=== PATIENT | female | born 1965 | race Caucasian/White ===

== ENCOUNTER 2022-09-25 10:19 | Inpatient (IN) | payer MEDICAID, SELFPAY ==
--- NOTE | ~2022-09-25 | CT_ITS ---
EXAMINATION: CT CHEST WITH CONTRAST CLINICAL INFORMATION: Abnormal chest x-ray COMPARISON: None TECHNIQUE: Multidetector volumetric CT imaging of the chest was obtained after the administration of 65 mL of Omnipaque 350 intravenous contrast without immediate adverse reactions. Axial MIP volume rendering provided. Sagittal and coronal reformatted images were obtained. This CT examination was performed using dose optimization techniques as appropriate, variously including the following: *Automated exposure control *Adjustment of mA and/or kV according to patient size (this includes techniques or standardized protocols for targeted exams where dose is matched to indication/reason for exam; i.e. extremities or head) *Use of iterative reconstruction technique DLP: 166 mGy-cm FINDINGS: The thoracic inlet is felt to be within normal limits. The axillary regions are unremarkable. Partially imaged upper abdominal structures demonstrate a left adrenal lesion. 0.6 x 1.3 cm. The left hilum does not appear enlarged. Prominent right hilum. I suspect some adenopathy. Imaging the lung russo. Right lung; Reticular nodular change in the right upper lung. This is occurring both peripherally and anteriorly at the level of the right hilum. This may well account for some of the density chest film. There is underlying confluence here and therefore an underlying lesion cannot be excluded versus dense consolidation on image 30. There is also some reticular nodular change at the right base most consistent with infiltrate. Left lung; No infiltrate or effusion. Review of the bone windows does not demonstrate evidence for bony lesion. Degenerative changes are noted. CT/CT chest w IV con IMPRESSION: Findings are as described above. Exam is most remarkable for reticular nodular infiltrate in the right upper lung and right lower lung consistent with areas of infiltrate but in addition more confluent opacity in the right midlung may well represent more dense infiltrate but underlying lesion of course could not be excluded. Probable right hilar adenopathy which may well be reactive. Correlation recommended clinically. I would in the least recommend repeat CT in 6 weeks after treatment for infectious/inflammatory process to evaluate for clearing. There is a left adrenal lesion. Recommend adrenal protocol CT to further evaluate
--- NOTE | ~2022-09-25 | XR_ITS ---
EXAMINATION: XR KNEE, RIGHT CLINICAL INFORMATION: Pain. Fall. COMPARISON: None TECHNIQUE: AP, lateral, tunnel, and sunrise views of the right knee. FINDINGS: Bones are osteopenic. No acute fracture or malalignment. There is a joint effusion. Soft tissues are swollen. Joint spaces are well-preserved. XR/XR knee RT 4V IMPRESSION: 1. No acute fracture or malalignment. 2. Joint effusion. 3. Osteopenia.
--- NOTE | ~2022-09-25 | XR_ITS ---
EXAMINATION: XR CHEST, 2 VIEWS CLINICAL INFORMATION: Pain COMPARISON: None. TECHNIQUE: PA and lateral views of the chest were obtained. FINDINGS: As seen on the lateral view, there is a focal 2.5 cm opacity overlying the lungs anteriorly which may correlate with increased opacity overlying the right hilar region. No other airspace opacities are identified. Lungs otherwise clear. Cardiac and meniscal contours are normal. No pneumothorax or pleural effusion. Mild degenerative disc disease in the thoracic spine. Closed thickening clips are present in the right upper quadrant. XR/XR chest 2V IMPRESSION: Focal 2.5 cm opacity overlying the right hilar region which may correspond to a pulmonary nodule or focal consolidation. Recommend further assessment with a CT of the chest with contrast. Otherwise no acute findings
--- NOTE | ~2022-09-25 | XR_ITS ---
EXAMINATION: XR ANKLE, RIGHT CLINICAL INFORMATION: Pain/fall. COMPARISON: None TECHNIQUE: AP, lateral, and mortise views of the right ankle. FINDINGS: Small marginal osteophytes are present in the talocrural joint. No joint effusion. No erosions. Bones are osteopenic. Mild soft tissue swelling at the ankle. Enthesopathic spurring is present at the Achilles tendon insertion on the calcaneus. XR/XR ankle RT min 3V IMPRESSION: 1. No acute fracture or malalignment. 2. Mild talocrural osteoarthritis.
[2022-09-25 10:36] VITALS: BP 140/76; PULSE 110; O2SAT 96
--- NOTE | 2022-09-25 10:37 | ECG_ITS ---
Test Reason : CHEST PAIN Blood Pressure : / mmHG Vent. Rate : 089 BPM Atrial Rate : 089 BPM P-R Int : 144 ms QRS Dur : 080 ms QT Int : 374 ms P-R-T Axes : 073 068 060 degrees QTc Int : 455 ms Normal sinus rhythm Normal ECG No previous ECGs available Referred By: Generic ED Physician Electronically Signed By:NUPUR ECHAVARRIA MD
[2022-09-25 11:15] LABS: MANUAL DIFF FLAG NO
[2022-09-25 11:20] LABS: Basophils Absolute Auto 0.1 X10*3/uL (0.0-0.2); Basophils Percent Auto 0.4 % (0-2); Eosinophils Absolute Auto 0.1 X10*3/uL (0.0-0.4); Hematocrit 38.3 % (37.0-47.0); Hemoglobin 12.6 g/dl (12.0-16.0); Imm Gran Abs Auto 0.04 X10*3/uL (0.00-0.03); Imm Gran Pct Auto 0.3 % (0.0-0.4); Lymphocytes Absolute Auto 2.6 X10*3/uL (1.2-4.9); Lymphocytes Percent Auto 21.7 % (20-40); Mean Corpuscular HGB Conc 32.9 g/dl (31.0-35.0); Mean Corpuscular Volume 91.2 fL (80.0-98.0); Mean Platelet Volume 8.8 fL (9.4-12.3); Monocytes Absolute Auto 0.7 X10*3/uL (0.1-1.2); Monocytes Percent Auto 5.8 % (2-11); Neutrophils Absolute Auto 8.5 x10*3/uL (2.0-8.3); Neutrophils Percent Auto 70.8 % (45-73); Platelet Count 315 X10*3/uL (160-400); Red Cell Distribution Width 11.7 % (11.0-16.0)
[2022-09-25 11:21] VITALS: BP 126/81; PULSE 89; RESP 18; TEMP 37.2; O2SAT 97; BMI 21.1
--- NOTE | 2022-09-25 11:25 | ED.GENADULT ---
HPI - General Adult General Chief complaint: Chest Pain <Marquise Montgomery - Last Filed: 09/25/22 11:30> Stated complaint: Cough, fever, chest pain, SOB per EMS <Marquise Montgomery - Last Filed: 09/25/22 11:30> Time Seen by Provider: 09/25/22 20:22 <Marquise Montgomery - Last Filed: 09/25/22 11:30> Source: patient <Constance López NP - Last Filed: 09/25/22 23:51> Mode of arrival: ambulatory <Constance López NP - Last Filed: 09/25/22 23:51> Limitations: language barrier <Constance López NP - Last Filed: 09/25/22 23:51> History of Present Illness HPI narrative: 57-year-old female presents with multiple complaints. States have chest pain, shortness of breath, productive cough, intermittent fevers and chills, headaches, panic, dizziness, and right leg pain and swelling after a fall 1 week ago. <Constance López NP - Last Filed: 09/25/22 23:51> Onset (ago): week(s) (1) <Constance López NP - Last Filed: 09/25/22 23:51> Severity: moderate <Constance López NP - Last Filed: 09/25/22 23:51> Severity scale (1-10): 5 <Constance López NP - Last Filed: 09/25/22 23:51> Quality: aching <Constance López NP - Last Filed: 09/25/22 23:51> Pain Consistency: constant <Constance López NP - Last Filed: 09/25/22 23:51> Associated symptoms: chest pain, cough, fever/chills, headaches, malaise and shortness of breath <Constance López NP - Last Filed: 09/25/22 23:51> Treatments prior to arrival: aspirin <Constance López NP - Last Filed: 09/25/22 23:51> Related Data Allergies/adverse reactions: Allergies Allergy/AdvReac Type Severity Reaction Status Date / Time No Known Allergies Allergy Verified 09/25/22 11:31 <Marquise Montgomery - Last Filed: 09/25/22 11:30> Review of Systems Review of Systems: Constitutional: Positive Fever, positive Chills ENT/Mouth: No Ear Pain, pop Hoarseness, No sore throat Eyes: No Eye Pain, No Swelling, No Redness, No Foreign Body Cardiovascular: Pause Chest Pain, positive SOB Respiratory: Pauses Cough, No Dyspnea Gastrointestinal: No Nausea, No Vomiting, No Diarrhea, No abdominal Pain Genitourinary: No Dysuria, No Hematuria Musculoskeletal: positive knee pain, No Myalgias, No Joint Swelling Skin: No Skin lacerations, No rash Neuro: No Weakness, No Numbness, No Paresthesias, No Loss of Consciousness, No Dizziness, positive Headache Psych: Positive Anxiety/Panic, No Depression <Constance López NP - Last Filed: 09/25/22 23:51> Yes all other systems are reviewed and are negative <Constance López NP - Last Filed: 09/25/22 23:51> [facility] Past Medical History Attestation statement: The following information was validated with the patient. <Constance López NP - Last Filed: 09/25/22 23:51> Source: old records reviewed <Constance López NP - Last Filed: 09/25/22 23:51> Social History Social History: Social History Advance Directives: No Advance Directives Information Provided: No <Marquise Montgomery - Last Filed: 09/25/22 11:30> Physical Exam ED Vital Signs: Vital Signs - 24 hr 09/25/22 11:21 09/25/22 14:53 09/25/22 20:06 Temperature 99 F 97.7 F Pulse Rate 89 82 105 H Respiratory Rate 18 18 22 H Blood Pressure 126/81 126/72 148/82 H Pulse Oximetry 97 97 98 Oxygen Delivery Method Room Air Room Air BMI result Body Mass Index 21.1 <Marquise Montgomery - Last Filed: 09/25/22 11:30> Vital Signs - 24 hr 09/25/22 11:21 09/25/22 14:53 09/25/22 20:06 Temperature 99 F 97.7 F Pulse Rate 89 82 105 H Respiratory Rate 18 18 22 H Blood Pressure 126/81 126/72 148/82 H Pulse Oximetry 97 97 98 Oxygen Delivery Method Room Air Room Air BMI result Body Mass Index 21.1 <Constance López NP - Last Filed: 09/25/22 23:51> Appearance: Alert. Oriented X3. Moderate distress. Eyes: Pupils equal, round and reactive to light. ENT: Pharynx normal. Neck: Normal inspection. Neck supple. No cervical lymphadenopathy. CVS: Normal heart rate and rhythm. Pulses normal. Respiratory: No respiratory distress. Coarse lung sounds throughout, expiratory wheezing noted. Abdomen: Soft and nontender. Skin: Skin warm and dry. Normal skin color. Normal skin turgor. Extremities: No lower extremity edema. Gait well-balanced well coordinated. Right knee tender to palpation. Neuro: No motor deficit. No sensory deficit. Cranial nerves 2-12 intact. <Constance López NP - Last Filed: 09/25/22 23:51> Course Course Course Narrative: 57 year old female with no known history of coronary artery disease presents for evaluation of multiple complaints including chest pain, productive cough, leg pain. Patient reports that the chest pain started 3 days ago has been getting worse. Patient arrive EMS and received aspirin 324 en route. Reports history of asthma and panic attacks. Patient also reports that she fell 1/2 months ago and injured her right leg. <Marquise Montgomery - Last Filed: 09/25/22 11:30> 57 year old female with no known history of coronary artery disease presents for evaluation of multiple complaints including chest pain, productive cough, leg pain. Patient reports that the chest pain started 3 days ago has been getting worse. Patient arrive EMS and received aspirin 324 en route. Reports history of asthma and panic attacks. Patient also reports that she fell 1/2 months ago and injured her right leg. 20:30 Patient presents for evaluation for multiple concerns. Was in the waiting room for approximately 10 hours. Labs completed while she was in the worsening room, upon presentation to the emergency department, heart rate is 105, respiration rate 22, COVID influenza RSV are negative, white count 12.0, knee x-ray indicates effusion, chest ray x-ray indicates a focal 2.5 cm opacity overlying the right hilar region which may be a pulmonary nodule versus focal consolidation. Patient's sounds are coarse expiratory wheezing. Patient does have productive cough, sputum is opaque and thick. O2 sats 96-98% on room air. Will order Solu-Medrol albuterol, ceftriaxone, and CT scan as recommended. For joint effusion, will apply Cam wrap. 22:00 patient has even unlabored respirations. Lung sounds have improved after albuterol. Respiration rate 17. lactic acid 1.8. 23:40 CT scan indicates right-sided pneumonia. Patient's vital signs have not been repeated. Patient's pulse at bedside is 82, respiration rate 16, even unlabored. Plan of care is for admission. <Constance López NP - Last Filed: 09/25/22 23:51> Consultations Consultation #1: Ant <Constance López NP - Last Filed: 09/25/22 23:51> Time: 23:30 <Constance López NP - Last Filed: 09/25/22 23:51> Medications Administered Discontinued Medications Generic Name Dose Route Start Last Admin Trade Name Freq PRN Reason Stop Dose Admin Albuterol Sulfate 5 mg 09/25/22 20:36 09/25/22 20:51 Albuterol Sulfate (0.083%) 2.5 Mg/3 Ml Vial.Neb INHALE 09/25/22 20:37 5 mg ONCE ONE Administration Ceftriaxone Sodium 1 gm/ 50 mls @ 100 mls/hr 09/25/22 20:29 09/25/22 22:02 Sodium Chloride IV 09/25/22 20:58 Infused ONCE ONE Infusion Iohexol 100 ml 09/25/22 21:51 09/25/22 21:51 Iohexol 350 Mg/Ml 100 Ml Infus..Btl IV 09/25/22 21:52 65 ml ONCE ONE Administration Methylprednisolone Sodium Succinate 125 mg 09/25/22 20:36 09/25/22 21:21 Methylprednisolone Sod Succ 125 Mg/2 Ml Vial IVPUSH 09/25/22 20:37 125 mg ONCE ONE Administration <Marquise Montgomery - Last Filed: 09/25/22 11:30> Medications Administered Discontinued Medications Generic Name Dose Route Start Last Admin Trade Name Freq PRN Reason Stop Dose Admin Albuterol Sulfate 5 mg 09/25/22 20:36 09/25/22 20:51 Albuterol Sulfate (0.083%) 2.5 Mg/3 Ml Vial.Neb INHALE 09/25/22 20:37 5 mg ONCE ONE Administration Ceftriaxone Sodium 1 gm/ 50 mls @ 100 mls/hr 09/25/22 20:29 09/25/22 22:02 Sodium Chloride IV 09/25/22 20:58 Infused ONCE ONE Infusion Iohexol 100 ml 09/25/22 21:51 09/25/22 21:51 Iohexol 350 Mg/Ml 100 Ml Infus..Btl IV 09/25/22 21:52 65 ml ONCE ONE Administration Methylprednisolone Sodium Succinate 125 mg 09/25/22 20:36 09/25/22 21:21 Methylprednisolone Sod Succ 125 Mg/2 Ml Vial IVPUSH 09/25/22 20:37 125 mg ONCE ONE Administration <Constance López NP - Last Filed: 09/25/22 23:51> Medical Decision Making Differential Diagnosis Differential Diagnoses: The differential diagnosis associated with the presentation includes <Constance López NP - Last Filed: 09/25/22 23:51> Pneumonia, lung CA, URI, COVID, influenza, RSV, effusion, fracture, dislocation <Constance López NP - Last Filed: 09/25/22 23:51> Admission/Observation Consideration of admission/observation: Escalation of care including admission/observation considered <Constance López NP - Last Filed: 09/25/22 23:51> will admit if CT acute <Constance López NP - Last Filed: 09/25/22 23:51> Consult Healthcare Provider Management of the patient was discussed with: Hospitalist <Constance López NP - Last Filed: 09/25/22 23:51> Lab Data MDM Lab Attestation statement: I reviewed the patient's lab results. <Constance López NP - Last Filed: 09/25/22 23:51> Result Diagrams: 09/25/22 11:09 09/25/22 11:09 <Marquise Montgomery - Last Filed: 09/25/22 11:30> Labs: Lab Results 09/25/22 09/25/22 09/25/22 Range/Units 11:09 11:09 11:09 WBC 12.0 H (4.8-10.8) X10*3/uL RBC 4.20 (4.20-5.50) X10*6/uL Hgb 12.6 (12.0-16.0) g/dl Hct 38.3 (37.0-47.0) % MCV 91.2 (80.0-98.0) fL MCH 30.0 (27.0-33.0) pg MCHC 32.9 (31.0-35.0) g/dl RDW 11.7 (11.0-16.0) % Plt Count 315 (160-400) X10*3/uL MPV 8.8 L (9.4-12.3) fL Immature Gran % (Auto) 0.3 (0.0-0.4) % Neut % (Auto) 70.8 (45-73) % Lymph % (Auto) 21.7 (20-40) % [place] % (Auto) 5.8 (2-11) % Eos % (Auto) 1.0 (0-4) % Baso % (Auto) 0.4 (0-2) % Lymph # (Auto) 2.6 (1.2-4.9) X10*3/uL [place] # (Auto) 0.7 (0.1-1.2) X10*3/uL Eos # (Auto) 0.1 (0.0-0.4) X10*3/uL Baso # (Auto) 0.1 (0.0-0.2) X10*3/uL Abs Immat Gran (auto) 0.04 H (0.00-0.03) X10*3/uL Absolute Neuts (auto) 8.5 H (2.0-8.3) x10*3/uL Absolute Nucleated RBC 0.000 (0.0-0.012) X10*3/uL Nucleated RBC % (auto) 0.0 (0.0-0.2) /100WBC Sodium 141 (135-145) mmol/L Potassium 3.6 (3.3-5.1) mmol/L Chloride 109 H (96-108) mmol/L Carbon Dioxide 22 (22-29) mmol/L Anion Gap 14 (12-20) BUN 7 L (9-16) mg/dL Creatinine 0.50 (0.5-1.4) mg/dL Estim Creat Clear Calc 92.5 Estimated GFR > 60 Random Glucose 117 H (60-115) mg/dL Lactic Acid (0.5-2.0) mmol/L Calcium 9.0 (8.4-10.2) mg/dL Troponin I High Sens < 3.5 (<3.5-17.0) ng/L Influenza Type A (PCR) (Negative) Influenza Type B (PCR) (Negative) RSV RNA Qual (PCR) (Negative) SARS-CoV-2 RNA (RT-PCR) (Negative) 09/25/22 09/25/22 Range/Units 11:09 20:38 WBC (4.8-10.8) X10*3/uL RBC (4.20-5.50) X10*6/uL Hgb (12.0-16.0) g/dl Hct (37.0-47.0) % MCV (80.0-98.0) fL MCH (27.0-33.0) pg MCHC (31.0-35.0) g/dl RDW (11.0-16.0) % Plt Count (160-400) X10*3/uL MPV (9.4-12.3) fL Immature Gran % (Auto) (0.0-0.4) % Neut % (Auto) (45-73) % Lymph % (Auto) (20-40) % [place] % (Auto) (2-11) % Eos % (Auto) (0-4) % Baso % (Auto) (0-2) % Lymph # (Auto) (1.2-4.9) X10*3/uL [place] # (Auto) (0.1-1.2) X10*3/uL Eos # (Auto) (0.0-0.4) X10*3/uL Baso # (Auto) (0.0-0.2) X10*3/uL Abs Immat Gran (auto) (0.00-0.03) X10*3/uL Absolute Neuts (auto) (2.0-8.3) x10*3/uL Absolute Nucleated RBC (0.0-0.012) X10*3/uL Nucleated RBC % (auto) (0.0-0.2) /100WBC Sodium (135-145) mmol/L Potassium (3.3-5.1) mmol/L Chloride (96-108) mmol/L Carbon Dioxide (22-29) mmol/L Anion Gap (12-20) BUN (9-16) mg/dL Creatinine (0.5-1.4) mg/dL Estim Creat Clear Calc Estimated GFR Random Glucose (60-115) mg/dL Lactic Acid 1.8 (0.5-2.0) mmol/L Calcium (8.4-10.2) mg/dL Troponin I High Sens (<3.5-17.0) ng/L Influenza Type A (PCR) NEGATIVE (Negative) Influenza Type B (PCR) NEGATIVE (Negative) RSV RNA Qual (PCR) NEGATIVE (Negative) SARS-CoV-2 RNA (RT-PCR) NEGATIVE (Negative) <Marquise Montgomery - Last Filed: 09/25/22 11:30> Lab Results 09/25/22 09/25/22 09/25/22 Range/Units 11:09 11:09 11:09 WBC 12.0 H (4.8-10.8) X10*3/uL RBC 4.20 (4.20-5.50) X10*6/uL Hgb 12.6 (12.0-16.0) g/dl Hct 38.3 (37.0-47.0) % MCV 91.2 (80.0-98.0) fL MCH 30.0 (27.0-33.0) pg MCHC 32.9 (31.0-35.0) g/dl RDW 11.7 (11.0-16.0) % Plt Count 315 (160-400) X10*3/uL MPV 8.8 L (9.4-12.3) fL Immature Gran % (Auto) 0.3 (0.0-0.4) % Neut % (Auto) 70.8 (45-73) % Lymph % (Auto) 21.7 (20-40) % [place] % (Auto) 5.8 (2-11) % Eos % (Auto) 1.0 (0-4) % Baso % (Auto) 0.4 (0-2) % Lymph # (Auto) 2.6 (1.2-4.9) X10*3/uL [place] # (Auto) 0.7 (0.1-1.2) X10*3/uL Eos # (Auto) 0.1 (0.0-0.4) X10*3/uL Baso # (Auto) 0.1 (0.0-0.2) X10*3/uL Abs Immat Gran (auto) 0.04 H (0.00-0.03) X10*3/uL Absolute Neuts (auto) 8.5 H (2.0-8.3) x10*3/uL Absolute Nucleated RBC 0.000 (0.0-0.012) X10*3/uL Nucleated RBC % (auto) 0.0 (0.0-0.2) /100WBC Sodium 141 (135-145) mmol/L Potassium 3.6 (3.3-5.1) mmol/L Chloride 109 H (96-108) mmol/L Carbon Dioxide 22 (22-29) mmol/L Anion Gap 14 (12-20) BUN 7 L (9-16) mg/dL Creatinine 0.50 (0.5-1.4) mg/dL Estim Creat Clear Calc 92.5 Estimated GFR > 60 Random Glucose 117 H (60-115) mg/dL Lactic Acid (0.5-2.0) mmol/L Calcium 9.0 (8.4-10.2) mg/dL Troponin I High Sens < 3.5 (<3.5-17.0) ng/L Influenza Type A (PCR) (Negative) Influenza Type B (PCR) (Negative) RSV RNA Qual (PCR) (Negative) SARS-CoV-2 RNA (RT-PCR) (Negative) 09/25/22 09/25/22 Range/Units 11:09 20:38 WBC (4.8-10.8) X10*3/uL RBC (4.20-5.50) X10*6/uL Hgb (12.0-16.0) g/dl Hct (37.0-47.0) % MCV (80.0-98.0) fL MCH (27.0-33.0) pg MCHC (31.0-35.0) g/dl RDW (11.0-16.0) % Plt Count (160-400) X10*3/uL MPV (9.4-12.3) fL Immature Gran % (Auto) (0.0-0.4) % Neut % (Auto) (45-73) % Lymph % (Auto) (20-40) % [place] % (Auto) (2-11) % Eos % (Auto) (0-4) % Baso % (Auto) (0-2) % Lymph # (Auto) (1.2-4.9) X10*3/uL [place] # (Auto) (0.1-1.2) X10*3/uL Eos # (Auto) (0.0-0.4) X10*3/uL Baso # (Auto) (0.0-0.2) X10*3/uL Abs Immat Gran (auto) (0.00-0.03) X10*3/uL Absolute Neuts (auto) (2.0-8.3) x10*3/uL Absolute Nucleated RBC (0.0-0.012) X10*3/uL Nucleated RBC % (auto) (0.0-0.2) /100WBC Sodium (135-145) mmol/L Potassium (3.3-5.1) mmol/L Chloride (96-108) mmol/L Carbon Dioxide (22-29) mmol/L Anion Gap (12-20) BUN (9-16) mg/dL Creatinine (0.5-1.4) mg/dL Estim Creat Clear Calc Estimated GFR Random Glucose (60-115) mg/dL Lactic Acid 1.8 (0.5-2.0) mmol/L Calcium (8.4-10.2) mg/dL Troponin I High Sens (<3.5-17.0) ng/L Influenza Type A (PCR) NEGATIVE (Negative) Influenza Type B (PCR) NEGATIVE (Negative) RSV RNA Qual (PCR) NEGATIVE (Negative) SARS-CoV-2 RNA (RT-PCR) NEGATIVE (Negative) <Constance López NP - Last Filed: 09/25/22 23:51> Independent Interpretation I performed an independent interpretation of an: EKG, Plain X-Ray and CT Scan <Constance López NP - Last Filed: 09/25/22 23:51> Interpretation: Normal sinus rhythm Normal ECG No previous ECGs available Vent. rate 89 BPM IN interval 144 ms QRS duration 80 ms QT/QTc 374/455 ms P-R-T axes 73 68 60 25-SEP-2022 11:01:47 <Constance López NP - Last Filed: 09/25/22 23:51> Radiology Impression Discussion of test interpretation with radiology: I have reviewed the radiologist's reading. <Constance López NP - Last Filed: 09/25/22 23:51> Independent Historian EXAMINATION: XR CHEST, 2 VIEWS CLINICAL INFORMATION: Pain COMPARISON: None. TECHNIQUE: PA and lateral views of the chest were obtained. FINDINGS: As seen on the lateral view, there is a focal 2.5 cm opacity overlying the lungs anteriorly which may correlate with increased opacity overlying the right hilar region. No other airspace opacities are identified. Lungs otherwise clear. Cardiac and meniscal contours are normal. No pneumothorax or pleural effusion. Mild degenerative disc disease in the thoracic spine. Closed thickening clips are present in the right upper quadrant. XR/XR chest 2V IMPRESSION: Focal 2.5 cm opacity overlying the right hilar region which may correspond to a pulmonary nodule or focal consolidation. Recommend further assessment with a CT of the chest with contrast. Otherwise no acute findings EXAMINATION: XR KNEE, RIGHT? CLINICAL INFORMATION: Pain. Fall.? COMPARISON: None? TECHNIQUE: AP, lateral, tunnel, and sunrise views of the right knee. FINDINGS: Bones are osteopenic. No acute fracture or malalignment. There is a joint effusion. Soft tissues are swollen. Joint spaces are well-preserved.? XR/XR knee RT 4V IMPRESSION: 1.? No acute fracture or malalignment. 2.? Joint effusion. 3.? Osteopenia EXAMINATION: XR ANKLE, RIGHT CLINICAL INFORMATION: Pain/fall.? COMPARISON: None? TECHNIQUE: AP, lateral, and mortise views of the right ankle. FINDINGS: Small marginal osteophytes are present in the talocrural joint. No joint effusion. No erosions. Bones are osteopenic. Mild soft tissue swelling at the ankle. Enthesopathic spurring is present at the Achilles tendon insertion on the calcaneus.? XR/XR ankle RT min 3V IMPRESSION: 1.? No acute fracture or malalignment. 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 EXAMINATION: CT CHEST WITH CONTRAST CLINICAL INFORMATION: Abnormal chest x-ray? COMPARISON: None? TECHNIQUE: Multidetector volumetric CT imaging of the chest was obtained after the administration of 65 mL of Omnipaque 350 intravenous contrast without immediate adverse reactions. Axial MIP volume rendering provided. Sagittal and coronal reformatted images were obtained. This CT examination was performed using dose optimization techniques as appropriate, variously including the following: *Automated exposure control *Adjustment of mA and/or kV according to patient size (this includes techniques or standardized protocols for targeted exams where dose is matched to indication/reason for exam; i.e. extremities or head) *Use of iterative reconstruction technique DLP: 166 mGy-cm FINDINGS: The thoracic inlet is felt to be within normal limits. The axillary regions are unremarkable. Partially imaged upper abdominal structures demonstrate a left adrenal lesion. 0.6 x 1.3 cm. The left hilum does not appear enlarged. Prominent right hilum. I suspect some adenopathy. Imaging the lung russo. Right lung; Reticular nodular change in the right upper lung. This is occurring both peripherally and anteriorly at the level of the right hilum. This may well account for some of the density chest film. There is underlying confluence here and therefore an underlying lesion cannot be excluded versus dense consolidation on image 30. There is also some reticular nodular change at the right base most consistent with infiltrate. Left lung; No infiltrate or effusion. Review of the bone windows does not demonstrate evidence for bony lesion. Degenerative changes are noted. CT/CT chest w IV con IMPRESSION: Findings are as described above. Exam is most remarkable for reticular nodular infiltrate in the right upper lung and right lower lung consistent with areas of infiltrate but in addition more confluent opacity in the right midlung may well represent more dense infiltrate but underlying lesion of course could not be excluded. Probable right hilar adenopathy which may well be reactive. Correlation recommended clinically. I would in the least recommend repeat CT in 6 weeks after treatment for infectious/inflammatory process to evaluate for clearing. ? There is a left adrenal lesion. Recommend adrenal protocol CT to further evaluate <Constance López NP - Last Filed: 09/25/22 23:51> External Record Review no prior records for this patient at this facility <Constance López NP - Last Filed: 09/25/22 23:51> Prescription Management I considered prescription management with: Pain Medication and Antibiotic <Constance López NP - Last Filed: 09/25/22 23:51> Discharge Plan Discharge Clinical Impression: Pneumonia <Marquise Montgomery - Last Filed: 09/25/22 11:30>
[2022-09-25 11:37] LABS: Anion Gap 14 (12-20); Blood Urea Nitrogen 7 mg/dL (9-16); Carbon Dioxide 22 mmol/L (22-29); Chloride 109 mmol/L (96-108); Creatinine Clr Calc Pharmacy 92.5; Estimated Glomerular Filt Rate > 60; Glucose Random 117 mg/dL (60-115); Potassium 3.6 mmol/L (3.3-5.1); Sodium 141 mmol/L (135-145)
[2022-09-25 11:49] LABS: Troponin-I High Sensitivity < 3.5 ng/L (<3.5-17.0)
[2022-09-25 12:00] LABS: Influenza A PCR NEGATIVE (Negative); Influenza B PCR NEGATIVE (Negative); Resp Syncy Virus RNA Qual PCR NEGATIVE (Negative); SARS COV2 PCR INHOUSE NEGATIVE (Negative)
[2022-09-25 14:53] VITALS: BP 126/72; PULSE 82; RESP 18; TEMP 36.5; O2SAT 97
[2022-09-25 20:06] VITALS: BP 148/82; PULSE 105; RESP 22; O2SAT 98
[2022-09-25] MEDS: Albuterol Sulfate (0.083%) 2.5 MG/3 ML VIAL.NEB 5 MG INHALE (20:51)
[2022-09-25 20:56] LABS: Lactic Acid 1.8 mmol/L (0.5-2.0)
[2022-09-25] MEDS: methylPREDNISolone Sod Succ 125 MG/2 ML VIAL IVPUSH (21:21)
[2022-09-25] MEDS: cefTRIAXone sodium 1 GM in 0.9 % Sodium Chloride 50 ML IV (21:21)
[2022-09-25] MEDS: iohexoL 350 MG/ML 100 ML INFUS..BTL IV (21:51)
--- NOTE | 2022-09-25 23:41 | P.HPHOSP_ITS ---
History of Present Illness Date of Service: 09/25/22 Chief Complaint: Dyspnea and cough this is a 57-year-old female with history of asthma and and not on prescription medications presents to the emergency department for evaluation of dyspnea. Patient states that over the last 3 4 days, she has been having worsening cough with yellowish sputum production. Also has associated fevers and chills. She has been feeling ill and has generalized fatigability. No sick contacts. No wheezing. Dyspnea is worse with exertion. Patient denies palpitations, shortness of breath, nausea, vomiting, abdominal pain, changes in urinary or bowel habits. Admits pleuritic chest discomfort in the emergency department, imaging was concerning for right-sided pneumonia Review of Systems Constitutional: Constitutional: Reports chills, Reports fever(s), Reports lethargy and Reports malaise Cardiovascular: Cardiovascular: Reports dyspnea on exertion Respiratory: Respiratory: Reports cough and Reports dyspnea on exertion Gastrointestinal: Gastrointestinal: Reports no additional gastrointestinal complaints Genitourinary: Genitourinary: Reports no additional female genitourinary complaints [facility] Medical History Asthma Functional capacity: independent ambulation Pertinent family history: no family history of CAD Social History Advance Directives: No Advance Directives Information Provided: No Meds Allergies Allergy/AdvReac Type Severity Reaction Status Date / Time No Known Allergies Allergy Verified 09/25/22 11:31 Active Medications: Current Medications Acetaminophen (Acetaminophen 325 Mg Tablet) 650 mg PO Q6H PRN PRN Reason: Pain, Mild (Pain Scale 1-3) Benzonatate (Benzonatate 100 Mg Capsule) 100 mg PO TID PRN PRN Reason: Cough Enoxaparin Sodium (Enoxaparin Sodium 40 Mg/0.4 Ml Syringe) 40 mg SUBCUT Q24H GERALD Sodium Chloride (Ns) 1,000 mls @ 999 mls/hr IVCONT .Q1H1M GERALD Stop: 09/26/22 00:45 Ceftriaxone Sodium 1 gm/ (Sodium Chloride) 50 mls @ 100 mls/hr IV Q24H GERALD Azithromycin 500 mg/ Sodium (Chloride) 250 mls @ 125 mls/hr IV Q24H GERALD Melatonin (Melatonin 3 Mg Tablet) 6 mg PO BEDTIME PRN PRN Reason: Insomnia Ondansetron HCl (Ondansetron Hcl 4 Mg/2 Ml Vial) 4 mg IVPUSH Q8H PRN PRN Reason: Nausea and Vomiting Sodium Chloride (0.9 % Sodium Chloride Flush 3 Ml Syringe) 3 ml IVFLUSH QSHIFT GERALD Physical Exam Vital Signs and Narrative: Vital Signs: Last Vital Signs Temp 97.7 F 09/25/22 14:53 Pulse 105 H 09/25/22 20:06 Resp 22 H 09/25/22 20:06 BP 148/82 H 09/25/22 20:06 Pulse Ox 98 09/25/22 20:06 O2 Del Method 09/25/22 20:06 BMI result Body Mass Index 21.1 Middle-aged female lying in bed in mild distress Neck supple, no JVD Regular rate and rhythm, S1-S2 heard Bilateral wheezing with right-sided crackles Abdomen soft nontender, no guarding, no rigidity Patient is awake, alert and oriented to self, place, time and person ; no focal motor deficit Psych: Normal mood No pedal edema Results Labs 09/25/22 11:09 09/25/22 11:09 Labs: Laboratory Results - last 24 hr 09/25/22 09/25/22 09/25/22 11:09 11:09 11:09 MCV 91.2 MCH 30.0 MCHC 32.9 RDW 11.7 Plt Count 315 MPV 8.8 L Immature Gran % (Auto) 0.3 Neut % (Auto) 70.8 Lymph % (Auto) 21.7 [place] % (Auto) 5.8 Eos % (Auto) 1.0 Baso % (Auto) 0.4 Lymph # (Auto) 2.6 [place] # (Auto) 0.7 Eos # (Auto) 0.1 Baso # (Auto) 0.1 Abs Immat Gran (auto) 0.04 H Absolute Neuts (auto) 8.5 H Absolute Nucleated RBC 0.000 Nucleated RBC % (auto) 0.0 Anion Gap 14 Estim Creat Clear Calc 92.5 Estimated GFR > 60 Random Glucose 117 H Lactic Acid Calcium 9.0 Troponin I High Sens < 3.5 Influenza Type A (PCR) Influenza Type B (PCR) RSV RNA Qual (PCR) SARS-CoV-2 RNA (RT-PCR) 09/25/22 09/25/22 11:09 20:38 MCV MCH MCHC RDW Plt Count MPV Immature Gran % (Auto) Neut % (Auto) Lymph % (Auto) [place] % (Auto) Eos % (Auto) Baso % (Auto) Lymph # (Auto) [place] # (Auto) Eos # (Auto) Baso # (Auto) Abs Immat Gran (auto) Absolute Neuts (auto) Absolute Nucleated RBC Nucleated RBC % (auto) Anion Gap Estim Creat Clear Calc Estimated GFR Random Glucose Lactic Acid 1.8 Calcium Troponin I High Sens Influenza Type A (PCR) NEGATIVE Influenza Type B (PCR) NEGATIVE RSV RNA Qual (PCR) NEGATIVE SARS-CoV-2 RNA (RT-PCR) NEGATIVE Imaging Radiologist's Impressions: Impressions Ankle X-Ray 09/25/22 12:33 IMPRESSION: 1. No acute fracture or malalignment. 2. Mild talocrural osteoarthritis. Chest X-Ray 09/25/22 12:33 IMPRESSION: Focal 2.5 cm opacity overlying the right hilar region which may correspond to a pulmonary nodule or focal consolidation. Recommend further assessment with a CT of the chest with contrast. Otherwise no acute findings Knee X-Ray 09/25/22 12:33 IMPRESSION: 1. No acute fracture or malalignment. 2. Joint effusion. 3. Osteopenia. Chest CT 09/25/22 21:51 IMPRESSION: Findings are as described above. Exam is most remarkable for reticular nodular infiltrate in the right upper lung and right lower lung consistent with areas of infiltrate but in addition more confluent opacity in the right midlung may well represent more dense infiltrate but underlying lesion of course could not be excluded. Probable right hilar adenopathy which may well be reactive. Correlation recommended clinically. I would in the least recommend repeat CT in 6 weeks after treatment for infectious/inflammatory process to evaluate for clearing. There is a left adrenal lesion. Recommend adrenal protocol CT to further evaluate Assessment and Plan (1) Pneumonia: Status: Acute Plan this is a 57-year-old female with history of asthma and and not on prescription medications presents to the emergency department for evaluation of dyspnea. #. Sepsis due to community-acquired pneumonia: Initiated empiric IV antibiotics. Resuscitated with IV crystalloids. Lactic acid and blood culture obtained. Sputum culture pending #. Acute Asthma exacerbation in the setting of above: Not on home inhaler. Initiating systemic steroids, scheduled and prn duonebs #. Right knee pain after mechanical fall. Knee xray pending Med rec pending DVT prophylaxis: Lovenox 40 mg daily Full code Regular diet Admit as inpatient and will require two night minimum hospital stay for IV antibiotics Time Spent With Patient Time: Total time managing care of this patient today ____ minutes. Quality Stroke Does the patient have a stroke diagnosis?: No VTE Prior VTE?: No VTE Risk Level:: Medical - moderate - high VTE Device Contraindication: Treatment Not Indicated VTE Drug Contraindication: N/A - Med Ordered
[2022-09-26] VITALS (10 sets, daily range): BP systolic 108–133; BP diastolic 61–77; PULSE 74–96; RESP 16–20; TEMP 36.4–36.8; O2SAT 95–99
[2022-09-26] MEDS: Azithromycin 500 MG in 0.9 % Sodium Chloride 250 ML 125 MG IV (01:06)
[2022-09-26] MEDS: 0.9 % Sodium Chloride 1,000 ML 999 ML IVCONT (01:06)
[2022-09-26] MEDS: Enoxaparin Sodium 40 MG/0.4 ML SYRINGE SUBCUT ×2 (01:06→23:18)
[2022-09-26] MEDS: Acetaminophen 325 MG TABLET 650 MG PO ×2 (05:34→13:29)
[2022-09-26 06:53] LABS: MANUAL DIFF FLAG NO
[2022-09-26 06:58] LABS: Basophils Percent Auto 0.2 % (0-2); Hematocrit 35.6 % (37.0-47.0); Imm Gran Abs Auto 0.04 X10*3/uL (0.00-0.03); Imm Gran Pct Auto 0.5 % (0.0-0.4); Lymphocytes Absolute Auto 0.9 X10*3/uL (1.2-4.9); Lymphocytes Percent Auto 10.8 % (20-40); Mean Corpuscular HGB Conc 33.7 g/dl (31.0-35.0); Mean Platelet Volume 8.8 fL (9.4-12.3); Monocytes Absolute Auto 0.1 X10*3/uL (0.1-1.2); Monocytes Percent Auto 0.9 % (2-11); Neutrophils Absolute Auto 7.6 x10*3/uL (2.0-8.3); Neutrophils Percent Auto 87.6 % (45-73); Platelet Count 311 X10*3/uL (160-400); Red Blood Count 3.87 X10*6/uL (4.20-5.50); Red Cell Distribution Width 11.7 % (11.0-16.0); White Blood Count 8.7 X10*3/uL (4.8-10.8)
[2022-09-26 07:15] LABS: Anion Gap 11 (12-20); Blood Urea Nitrogen 9 mg/dL (9-16); Calcium 8.5 mg/dL (8.4-10.2); Carbon Dioxide 22 mmol/L (22-29); Chloride 110 mmol/L (96-108); Creatinine Clr Calc Pharmacy 87.3; Estimated Glomerular Filt Rate > 60; Glucose Random 141 mg/dL (60-115); Potassium 3.8 mmol/L (3.3-5.1); Sodium 139 mmol/L (135-145)
[2022-09-26] MEDS: methylPREDNISolone Sod Succ 40 MG/ML VIAL IVPUSH ×2 (07:56→18:08)
[2022-09-26] MEDS: 0.9 % Sodium Chloride Flush 3 ML SYRINGE IVFLUSH ×2 (07:56→23:18)
--- NOTE | 2022-09-26 08:13 | PC.NURSE ---
pt is a/o x 4 no sob/obdulio noted speaks in full sentences. at times prod-cough. lungs - jvoi upper lobes - diminished, jovi lower lobes - cta. heart sound - regular. no edema noted. pt aware of plan of care. pt is admitted to hosp. pt c/o 01/04 migraine-like headache.
--- NOTE | 2022-09-26 09:12 | PHA.MEDREC ---
Pharmacy Consult ? Medication Reconciliation Pharmacy has completed the medication reconciliation. Spoke to patient with assistance of french translator. She states that she stopped taking all of her home meds months ago due to lack of finanaces. At the time she says she was taking something for anxiety and depression, and also gabapentin 600 mg.She didn't know any other information about her previous medications.
[2022-09-26] MEDS: Butalb/Acetamin/Caff 50/325/40 TABLET 1 TAB PO ×2 (10:22→19:46)
--- NOTE | 2022-09-26 12:47 | HO.PM.IMPN ---
Subjective Subjective Date of Service: 09/26/22 Interval History: seen and examined this morning follow up for pneumonia reporting headache, knee pain, chills, cough with intermittent sputum production Review of Systems Review of Systems: Yes all other systems are reviewed and are negative Constitutional Constitutional: Reports chills and Denies fever(s) Physical Exam Vital Signs: Vital Signs: Last Vital Signs Temp 97.9 F 09/26/22 07:56 Pulse 85 09/26/22 11:14 Resp 18 09/26/22 11:14 BP 132/72 09/26/22 07:56 Pulse Ox 98 09/26/22 07:56 O2 Del Method 09/26/22 07:56 BMI result Body Mass Index 21.1 Const: General: cooperative, comfortable, no acute distress, alert and awake Nutritional Appearance: average body habitus Orientation/consciousness: patient oriented x3 Resp: Effort & Inspection: normal respiratory effort and able to speak in complete sentences Auscultation: clear to auscultation bilaterally Cardio: Rate: regular rate Heart sounds: S1 normal heart sound present and S2 normal heart sound present GI: Inspection: No distended Palpation (GI): Soft to palpation Neuro: General: patient oriented x3 and CN's II-XI intact bilaterally Extrem: Other: right knee mild swelling, no erythema, no joint line pain, full ROM General: Yes no pedal edema Objective Data Active Medications Acetaminophen (Acetaminophen 325 Mg Tablet) 650 mg PO Q6H PRN PRN Reason: Pain, Mild (Pain Scale 1-3) Last Admin: 09/26/22 05:34 Dose: 650 mg Documented By: KATHRINE Benzonatate (Benzonatate 100 Mg Capsule) 100 mg PO TID PRN PRN Reason: Cough Albuterol Sulfate 2.5 mg/ (Ipratropium [place] 0.5 mg) 0 mg INHALE RQ4H WHILE AWAKE [facility] Last Admin: 09/26/22 11:14 Dose: 2.5 each Documented By: VAIBHAV Albuterol Sulfate 2.5 mg/ (Ipratropium [place] 0.5 mg) 0 mg INHALE RQ4H PRN PRN Reason: Wheezing Enoxaparin Sodium (Enoxaparin Sodium 40 Mg/0.4 Ml Syringe) 40 mg SUBCUT Q24H [facility] Last Admin: 09/26/22 01:06 Dose: 40 mg Documented By: KATHRINE Ceftriaxone Sodium 1 gm/ (Sodium Chloride) 50 mls @ 100 mls/hr IV Q24H [facility] Azithromycin 500 mg/ Sodium (Chloride) 250 mls @ 125 mls/hr IV Q24H [facility] Last Admin: 09/26/22 01:06 Dose: 125 mls/hr Documented By: KATHRINE Melatonin (Melatonin 3 Mg Tablet) 6 mg PO BEDTIME PRN PRN Reason: Insomnia Methylprednisolone Sodium Succinate (Methylprednisolone Sod Succ 40 Mg/Ml Vial) 40 mg IVPUSH Q12H [facility] Last Admin: 09/26/22 07:56 Dose: 40 mg Documented By: ESDRAS Ondansetron HCl (Ondansetron Hcl 4 Mg/2 Ml Vial) 4 mg IVPUSH Q8H PRN PRN Reason: Nausea and Vomiting Pharmacy Consult (Consult Rx Perform Med Rec) 1 each MISCELLANE ONCE PRN PRN Reason: Consult order Sodium Chloride (0.9 % Sodium Chloride Flush 3 Ml Syringe) 3 ml IVFLUSH QSHIFT [facility] Last Admin: 09/26/22 07:56 Dose: 3 ml Documented By: ESDRAS Labs 09/26/22 06:46 09/26/22 06:46 Labs: Laboratory Results - last 24 hr 09/25/22 09/26/22 09/26/22 20:38 06:46 06:46 MCV 92.0 MCH 31.0 MCHC 33.7 RDW 11.7 Plt Count 311 MPV 8.8 L Immature Gran % (Auto) 0.5 H Neut % (Auto) 87.6 H Lymph % (Auto) 10.8 L [place] % (Auto) 0.9 L Eos % (Auto) 0.0 Baso % (Auto) 0.2 Lymph # (Auto) 0.9 L [place] # (Auto) 0.1 Eos # (Auto) 0.0 Baso # (Auto) 0.0 Abs Immat Gran (auto) 0.04 H Absolute Neuts (auto) 7.6 Absolute Nucleated RBC 0.000 Nucleated RBC % (auto) 0.0 Anion Gap 11 L Estim Creat Clear Calc 87.3 Estimated GFR > 60 Random Glucose 141 H Lactic Acid 1.8 Calcium 8.5 Assessment and Plan (1) Asthma: Status: Acute (2) Pneumonia: Status: Acute Plan this is a 57-year-old female with history of asthma and and not on prescription medications presents to the emergency department for evaluation of dyspnea. Sepsis due to community-acquired pneumonia: met sepsis criteria with tachycardia, tachypnea continue IV ceftraixone, azithromycin Lactic acid wnl, blood cultures pending currently on room air CT chest showing reticular nodular infiltrate right upper lung, right lower long and more confluent opacity in the right mid lung, underlying lesion can't be excluded and probable hilar lymphadenopathy. Recommend repeat CT in 6 weeks after completion of treatment to evaluate for resolution Acute Asthma exacerbation in the setting of above: Not on home inhaler. Initiating systemic steroids, scheduled and prn duonebs Right knee pain after mechanical fall. xray with small effusion, has full ROM outpatient follow up left adrenal lesion outpatient CT with adrenal protocol to further evaluate DVT prophylaxis: Lovenox 40 mg daily Full code attending - dr. chowdhury will require two night minimum hospital stay for IV antibiotics Time Spent With Patient Time: Total time managing care of this patient today ____ minutes. Quality Stroke Does the patient have a stroke diagnosis?: No VTE Prior VTE?: No VTE Risk Level:: Medical - moderate - high VTE Device Contraindication: Treatment Not Indicated VTE Drug Contraindication: N/A - Med Ordered
--- NOTE | 2022-09-26 13:07 | PC.NURSE ---
Received patient to overflow room 11 from main ED. Patient transfer from wheelchair to bed - steady gait. No SOB. Vitals stable. Denies pain at this time.
--- NOTE | 2022-09-26 18:45 | PC.NURSE ---
pt arrived to overflow from main ED. Pt is Telugu speaking only, iuss acoustic analyst present for assessment. Pt c/o headache, prn tylenol given w/ moderate effect. pt continued to c/o headache, PA informed. no c/o chest pain at this time. pt is independent.
--- NOTE | 2022-09-26 20:07 | PC.NURSE ---
Assumed care of pt. at 1900. Pt. is ambulating independently. Pt. reports a headache that has persisted with some effectiveness from the Tylenol she took at 1330. Spoke with hospitalist and pt. was medicated with Fiorecet. Pt. was assigned a bed on [facility], room 477. Called to give report, CAMERON iyer. Jered texted her to call for report when ready.
[2022-09-26] MEDS: Nicotine Polacrilex 2 MG GUM BUCCAL (23:17)
[2022-09-26] MEDS: hydrOXYzine HCL 50 MG TABLET PO (23:17)
[2022-09-26] MEDS: cefTRIAXone sodium 1 GM in 0.9 % Sodium Chloride 50 ML IV (23:18)
[2022-09-27] MEDS: Azithromycin 500 MG in 0.9 % Sodium Chloride 250 ML 125 MG IV (00:02)
[2022-09-27] MEDS: methylPREDNISolone Sod Succ 40 MG/ML VIAL IVPUSH (06:13)
[2022-09-27 07:37] VITALS: BP 124/60; PULSE 70; RESP 14; TEMP 36.9; O2SAT 97
--- NOTE | 2022-09-27 09:32 | P.DS_ITS ---
DS: Providers Provider Date of Service: 09/27/22 Date of admission: 09/25/22 23:39 Date of discharge: 09/27/22 Primary care physician: None Physician Attending physician on discharge: David Ibarra Discharging clinician: Gina Hawk DS: Diagnosis Discharge Diagnosis (1) Asthma: Status: Acute (2) Pneumonia: Status: Acute DS: Summary Hospital Course Hospital Course: From H&P? this is a 57-year-old female with history of asthma and and not on prescription medications presents to the emergency department for evaluation of dyspnea.? Patient states that over the last 3 4 days, she has been having worsening cough with yellowish sputum production.? Also has associated fevers and chills.? She has been feeling ill and has generalized fatigability.? No sick contacts.? No wheezing.? Dyspnea is worse with exertion.? Patient denies palpitations, shortness of breath, nausea, vomiting, abdominal pain, changes in urinary or bowel habits.? Admits pleuritic chest discomfort she was treated with IV Solu-Medrol, breathing treatments and IV antibiotics. Leukocytosis and tachycardia resolved. Her breathing status improved and her wheezing resolved. She is currently stable for discharge home. She will be discharged home to complete course of steroids and antibiotics. chest CT recommends repeat chest CT in 6 weeks after treatment to evaluate for clearing. Also noted was a left adrenal lesion with recommendation for CT with adrenal protocol for further evaluation. This was verbalized to the patient. She is encouraged to obtain a PCP for close outpatient follow-up. For her right knee pain she states that has been present since her fall. X-ray shows small effusion. She has minimal swelling and full range of motion, recommend out patient follow-up. HIV/hepatitis screening was obtained at patient request and results are pending at the time of discharge. Time Spent with Patient Time attestation: Total time managing care of this patient today ____ minutes. Discharge coordination time: Greater than 30 minutes Quality: Safe Use of Opioids Does Pt have an Active Cancer Diagnosis on the Problem List?: No Quality: Stroke Does the patient have a stroke diagnosis?: No Physical Exam Vital Signs: Vital Signs: Last Vital Signs Temp 98.4 F 09/27/22 07:37 Pulse 70 09/27/22 07:37 Resp 14 09/27/22 07:37 BP 124/60 09/27/22 07:37 Pulse Ox 97 09/27/22 07:37 O2 Del Method 09/26/22 23:39 BMI result Body Mass Index 21.1 Const: General: cooperative, comfortable, no acute distress, alert and awake Nutritional Appearance: average body habitus Orientation/consciousness: patient oriented x3 Resp: Effort & Inspection: normal respiratory effort and able to speak in complete sentences Auscultation: clear to auscultation bilaterally Cardio: Rate: regular rate Heart sounds: S1 normal heart sound present and S2 normal heart sound present GI: Inspection: No distended Palpation (GI): Soft to palpation Neuro: General: patient oriented x3 and CN's II-XI intact bilaterally Extrem: Other: right knee mild swelling, no erythema, no joint line pain, full ROM General: Yes no pedal edema DS: Data Data Completed and Pending Labs on day of discharge: Preliminary micro results at discharge 09/26/22 12:55 Sputum Culture - Preliminary Sputum - Expectorated Culture in progress. 09/25/22 20:38 Blood Culture - Preliminary Blood - Venous No growth after 24 hours. 09/25/22 20:38 Blood Culture - Preliminary Blood - Venous No growth after 24 hours. Discharge Plan Discharge Anticipated Discharge Date/Time: 09/27/22 10:15 Patient Disposition: Home, Self-Care Discharge Diagnosis: pneumonia acute asthma exacerbation Referrals: Holley Alex PA-C [Physician Chair Mechanic] - 2 Weeks Physician,None [Primary Care Provider] - 1 Week Discharge Medications: New cefuroxime axetil 500 mg tablet 500 mg PO BID 5 Days Qty: 10 0RF azithromycin 250 mg tablet 250 mg PO DAILY 5 Days Qty: 5 0RF prednisone 20 mg tablet 40 mg PO DAILY 4 Days Qty: 8 0RF benzonatate 100 mg capsule 100 mg PO BID PRN (Reason: cough) Qty: 10 0RF albuterol sulfate 90 mcg/actuation HFA aerosol inhaler 2 puff inhalation Q4-6H PRN (Reason: shortness of breath or wheezing) Qty: 6.7 0RF Discharge Orders: Discharge Order (Routine); Ordered 09/27/22 Ordered By: Gina Hawk Diet: Advance to usual diet Activity on Discharge: As tolerated Stand Alone Forms: Patient Portal Discharge page Care Plan Goals: resolution of pulmonary symptoms Health Concerns: pneumonia acute asthma exacerbation Plan of Treatment: take entire course of prednisone and antibiotics as prescribed call to obtain a PCP, can try [facility] [phone] you will need repeat chest CT in 6 weeks to ensure resolution of pneumonia recommend CT with adrenal protocol for further evaluation can follow up with new PCP if you are still having knee pain HIV/hepatitis results are still pending, you can log into the patient portal to obtain the results Assessment: admitted for pneumonia and asthma exacerbation
[2022-09-27 09:42] LABS: HBc Num1 0.15 S/CO (0.00-0.79); HBsAGNum1 0.32 S/CO (0.00-0.99); HIV AB/AG Nonreactive (Nonreactive); HIV Num 1 0.06 S/CO (0.00-0.99); Hepatitis A Antibody IgM 0.41 Index (0-0.79); Hepatitis B Core Antibody Nonreactive (Nonreactive); Hepatitis B Surface Antigen Negative (Negative); ~HepC Num1 0.16 S/CO (0.00-0.79); ~Hepatitis A Antibody IgM Nonreactive (Nonreactive); ~Hepatitis B Surface Antibody NONREACTIVE (Nonreactive); ~Hepatitis C Antibody Nonreactive (Nonreactive)
[2022-09-27] MEDS: 0.9 % Sodium Chloride Flush 3 ML SYRINGE IVFLUSH (09:45)
--- NOTE | 2022-09-27 11:03 | MHC.CM.PN ---
Female 57 DX Cough Lives w room mate, independent. Discharged to home self care via shuttle. The [facility] PCP list was provided to the patient. She received a coupon for the [facility] Shuttle.
--- NOTE | 2022-09-27 11:19 | PC.NURSE ---
pt A&O x 4. discharge instruction given to pt with italian speaking diplomatic interpreter, Cintia, a bedside. pt verbalizes understanding - to find PCP, f/u, signing up for patient portal to have access to test results. IV taken out. pt was given shuttle voucher. [employer] walked pt to front of hospital to shuttle.
--- NOTE | 2022-10-06 15:39 | P.CDIM_ITS ---
PROVIDER RESPONSE TEXT: To clarify, the appropriate diagnosis supported by the clinical indicators: Sepsis is/was present and is a clinical diagnosis based on: met crieteria with HR and RR QUERY TEXT: PHYSICIAN'S DOCUMENTATION REQUEST/RETROSPECTIVE QUERY Date of Query: 09/30/2022 10:14 AM EST Patient Name: Melodie Justice Admit Date: 09/26/2022 Dear Gina Hawk, H&P 09/25 - Sepsis due to community acquired pneumonia IV Antibiotics WBC 12.0 LA 1.8 HR 105 RR 22 Temp 99 Fever and chills (POA) Discharge summary 09/27 - Asthma/pneumonia. The patient's infectious clinical indicators include Sepsis Systemic manifestations of infection, with 2 or more SIRS criteria which include: Fever > 100.4?F or hypothermia < 96.8?F Leukocytosis WBC > 12,000 or leukopenia, WBC < 4,000, or > 10% bands Tachycardia- > 90 beats/minute Tachypnea- RR > 20 breaths/minute or PaCO2 < 32mmHg Based on the above information and the recognized standard for sepsis, could you please clarify if th is diagnoses is still accurate and reflective of the patient's condition to ensure quality of the medical record. Sepsis is/was present and is a clinical diagnosis based on After study (the condition) has been ruled out Other (explain) Clinically unable to determine (explain) Thank you, Anat Yang, CCS, CDIS Use of terms such as suspected, likely, concern for, or probable (associated with a specific diagnosi s that is being evaluated, monitored, or treated as if it exists) are acceptable and can be coded in the inpatient se tting, when documented at the time of discharge. Please use your independent medical judgment in providing your response. THIS QUERY IS PART OF THE PERMANENT MEDICAL RECORD
== END 2022-09-27 11:23 | disposition home or self-care (01) | DRG 720 ==
LOC: HO.ED 23:44 → HO.EDOVER 09-26 00:02 → HO.IMC 09-26 19:52
PROVIDERS: Nurse Practitioner Family; Admitting Provider Student in an Organized Health Care Education/Training Program; Emergency Provider Emergency Medicine Emergency Medical Services; Visit Provider Physician Assistant Medical
DX: A41.9 Sepsis, unspecified organism (principal); J18.9 Pneumonia, unspecified organism; J45.901 Unspecified asthma with (acute) exacerbation; E27.9 Disorder of adrenal gland, unspecified; F17.210 Nicotine dependence, cigarettes, uncomplicated; M25.561 Pain in right knee; Z20.822 Contact with and (suspected) exposure to COVID-19; Z71.6 Tobacco abuse counseling; Z79.899 Other long term (current) drug therapy
CPT/HCPCS: 0241U; 36415; 71046; 71260; 73564; 73610; 80048; 83605; 84484; 85025; 86704; 86706; 86709; 86803; 87040; 87070; 87205; 87340; 87389; 93005; 99285; J0456; J0696; J1650; J2920; J2930; Q9967

== ENCOUNTER 2024-01-21 09:29 | Outpatient (REF) | payer MEDICAID, SELFPAY ==
[2024-01-21 11:18] LABS: MANUAL DIFF FLAG NO
[2024-01-21 11:34] LABS: Basophils Absolute Auto 0.1 X10*3/uL (0.0-0.2); Basophils Percent Auto 1.1 % (0-2); Eosinophils Absolute Auto 0.1 X10*3/uL (0.0-0.4); Eosinophils Percent Auto 1.8 % (0-4); Hematocrit 43.9 % (37.0-47.0); Hemoglobin 14.6 g/dl (12.0-16.0); Imm Gran Abs Auto 0.03 X10*3/uL (0.00-0.03); Imm Gran Pct Auto 0.4 % (0.0-0.4); Lymphocytes Absolute Auto 2.3 X10*3/uL (1.2-4.9); Lymphocytes Percent Auto 31.2 % (20-40); Mean Corpuscular HGB Conc 33.3 g/dl (31.0-35.0); Mean Corpuscular Hemoglobin 31.1 pg (27.0-33.0); Mean Corpuscular Volume 93.4 fL (80.0-98.0); Mean Platelet Volume 9.4 fL (9.4-12.3); Monocytes Absolute Auto 0.4 X10*3/uL (0.1-1.2); Monocytes Percent Auto 5.4 % (2-11); Neutrophils Absolute Auto 4.4 x10*3/uL (2.0-8.3); Neutrophils Percent Auto 60.1 % (45-73); Platelet Count 375 X10*3/uL (160-400); Red Cell Distribution Width 12.4 % (11.0-16.0); White Blood Count 7.4 X10*3/uL (4.8-10.8)
[2024-01-21 11:39] LABS: Estimated Average Glucose 100 mg/dL; Hemoglobin A1c % 5.1 % (<6.0)
[2024-01-21 11:57] LABS: ~HepC Num1 0.13 S/CO (0.00-0.79); ~Hepatitis C Antibody Nonreactive (Nonreactive)
[2024-01-21 12:03] LABS: Alanine Aminotransferase 12 U/L (0-31); Albumin Level 4.2 g/dL (3.5-5.0); Alkaline Phosphatase 76 U/L (39-117); Anion Gap 14 (12-20); Aspartate Amino Transferase 14 U/L (5-31); Bilirubin Direct 0.2 mg/dL (0.0-0.5); Bilirubin Total 0.6 mg/dL (0.0-1.0); Blood Urea Nitrogen 8 mg/dL (9-16); Calcium 9.4 mg/dL (8.4-10.2); Carbon Dioxide 24 mmol/L (22-29); Chloride 107 mmol/L (96-108); Cholesterol 231 mg/dL (<200); Estimated Glomerular Filt Rate > 60; Glucose Random 82 mg/dL (60-115); HDL Cholesterol 67 mg/dL (>40); LDL Cholesterol Calculated 144 mg/dL (<100); Potassium 3.9 mmol/L (3.3-5.1); Sodium 141 mmol/L (135-145); TSH reflex Free T4 2.01 uIU/mL (0.32-4.0); Total Protein 7.2 g/dL (6.5-8.0); Triglycerides 102 mg/dL (<150)
[2024-01-21 13:31] LABS: CT PCR NOT DETECTED (Not Detect.); NG PCR NOT DETECTED (Not Detect.)
[2024-01-23 19:23] LABS: HIV RNA PCR Qn Copies Not Detected Copies/mL; HIV RNA PCR Qn Log Copies Not Detected Log cps/mL
[2024-01-28 14:09] LABS: RPR Rapid Plasma Reagin NON-REACTIVE (NON-REACTIVE)
== END 2024-01-21 09:30 | disposition home or self-care (01) ==
LOC: HO.HHCL 09:29
PROVIDERS: Visit Provider Internal Medicine
DX: R00.2 Palpitations (principal); R07.89 Other chest pain; R06.09 Other forms of dyspnea; Z11.3 Encounter for screening for infections with a predominantly sexual mode of transmission
CPT/HCPCS: 80048; 80061; 80076; 83036; 84443; 85025; 86592; 86803; 87491; 87536; 87591; 87900

== ENCOUNTER 2024-06-03 19:46 | Emergency (ER) | payer MEDICAID, SELFPAY ==
--- NOTE | ~2024-06-03 | CT_ITS ---
EXAMINATION: CT HEAD WITHOUT CONTRAST CLINICAL INFORMATION: Left-sided weakness and headache. COMPARISON: None. TECHNIQUE: Contiguous axial imaging was performed from the skull base to vertex without intravenous administration of contrast. This CT examination was performed using dose optimization techniques as appropriate, variously including the following: *Automated exposure control *Adjustment of mA and/or kV according to patient size (this includes techniques or standardized protocols for targeted exams where dose is matched to indication/reason for exam; i.e. extremities or head) *Use of iterative reconstruction technique DLP: 633 mGy-cm FINDINGS: There is no evidence of acute intracranial hemorrhage or edematous territorial infarction. A few foci of hypoattenuation in the periventricular and deep white matter are consistent with mild microangiopathy. Alan-white matter differentiation is preserved. Proportional prominence of the ventricles and sulcal spaces. No evidence for obstructive hydrocephalus. No abnormal mass effect or midline shift. No extra-axial fluid collections. No acute soft tissue or osseous abnormalities. The mastoid air cells and paranasal sinuses are clear. Degenerative changes of the temporomandibular joints. CT/CT head/brain wo IV con IMPRESSION: No evidence of acute intracranial hemorrhage or edematous territorial infarction. Electronically signed by: Cathy Degn MD 06/03/2024 10:35 PM [facility]
--- NOTE | 2024-06-03 19:53 | ECG_ITS ---
Test Reason : STROKE ALERT? Blood Pressure : / mmHG Vent. Rate : 070 BPM Atrial Rate : 070 BPM P-R Int : 154 ms QRS Dur : 096 ms QT Int : 418 ms P-R-T Axes : 055 062 054 degrees QTc Int : 451 ms Normal sinus rhythm Normal ECG When compared with ECG of 25-SEP-2022 11:01, No significant change was found Referred By: Marquise Montgomery Electronically Signed By:NUPUR ECHAVARRIA MD
[2024-06-03 19:55] VITALS: BP 145/77; BP 148/91; PULSE 75; PULSE 78; RESP 16; TEMP 36.8; O2SAT 96; O2SAT 99; BMI 23.2
[2024-06-03 19:58] LABS: Glucose, Whole Blood 135 mg/dL (60-115)
--- NOTE | 2024-06-03 20:02 | MHC.EDTECH ---
attempted to check PT/INR via [employer], unsuccedful x4, RN notified.
[2024-06-03 20:19] LABS: Basophils Absolute Auto 0.1 X10*3/uL (0.0-0.2); Basophils Percent Auto 0.8 % (0-2); Eosinophils Absolute Auto 0.2 X10*3/uL (0.0-0.4); Hematocrit 36.3 % (37.0-47.0); Hemoglobin 12.5 g/dl (12.0-16.0); Imm Gran Abs Auto 0.01 X10*3/uL (0.00-0.03); Imm Gran Pct Auto 0.1 % (0.0-0.4); Lymphocytes Absolute Auto 3.4 X10*3/uL (1.2-4.9); Lymphocytes Percent Auto 45.1 % (20-40); MANUAL DIFF FLAG NO; Mean Corpuscular HGB Conc 34.4 g/dl (31.0-35.0); Mean Corpuscular Hemoglobin 31.6 pg (27.0-33.0); Mean Corpuscular Volume 91.9 fL (80.0-98.0); Mean Platelet Volume 8.9 fL (9.4-12.3); Monocytes Absolute Auto 0.7 X10*3/uL (0.1-1.2); Monocytes Percent Auto 9.9 % (2-11); Neutrophils Absolute Auto 3.2 x10*3/uL (2.0-8.3); Neutrophils Percent Auto 42.1 % (45-73); Platelet Count 196 X10*3/uL (160-400); Red Blood Count 3.95 X10*6/uL (4.20-5.50); Red Cell Distribution Width 12.3 % (11.0-16.0); White Blood Count 7.5 X10*3/uL (4.8-10.8)
--- NOTE | 2024-06-03 20:25 | ED_ITS ---
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 Patient reports since waking up Friday morning, over 48 hours ago she has had a posterior headache. She reports numbness and tingling to the left side of her head that goes into her left shoulder. She also complains of cramping in the left leg She has not had any difficulty speaking or weakness She denies any falls or striking her head. She feels as though her left eye is twitching but denies any blurry vision Denies any chest pain, shortness of breath, abdominal pain, nausea vomiting. No other complaints or concerns at this time Related Data Previous Rx's ?Medication ?Instructions ?Recorded albuterol sulfate 90 mcg/actuation 2 puff inhalation Q4-6H PRN 09/27/22 aerosol inhaler shortness of breath or wheezing #6.7 grams azithromycin 250 mg tablet 250 mg PO DAILY 5 days #5 tabs 09/27/22 benzonatate 100 mg capsule 100 mg PO BID PRN cough #10 caps 09/27/22 cefuroxime axetil 500 mg tablet 500 mg PO BID 5 days #10 tabs 09/27/22 prednisone 20 mg tablet 40 mg (2 x 20 mg) PO DAILY 4 days 09/27/22 #8 tabs Allergies Allergy/AdvReac Type Severity Reaction Status Date / Time No Known Allergies Allergy Verified 06/03/24 19:59 Review of Systems 2 Constitutional: Constitutional: Denies body ache(s), Denies chills, Denies fever(s), Reports headache(s) and Denies weakness Eyes: Eyes: Denies blurry vision, Denies floaters, Denies irritation and Denies loss of vision ENT: Denies vertigo, Denies dizziness, Reports headache(s) and Denies disequilibrium Cardiovascular: Cardiovascular: Denies chest pain and Denies dyspnea Respiratory: Respiratory: Denies cough and Denies dyspnea Gastrointestinal: Gastrointestinal: Denies abdominal pain, Denies nausea and Denies vomiting Musculoskeletal: Musculoskeletal: Denies back pain, Reports muscle cramps, Denies muscle weakness and Reports tingling Neurologic: Denies Abnormal speech present, Denies confusion, Denies vertigo, Denies dizziness, Reports headache(s), Denies focal weakness, Denies loss of vision, Denies restless legs, Denies convulsions, Denies seizure-like activity, Denies Sensory deficit (Neuro), Reports tingling, Reports paresthesias, Denies tremor(s), Denies disequilibrium and Denies weakness Psychiatric: Psychiatric: Denies confusion PMFSH Past Medical History Medical History Asthma Social History Social History (System 01/06/24 @ 10:51 by Janice López) Household Members: Other Household Members Other:: Roommate Housing: Apartment Do you presently have visiting nurse or other home services: No Alcohol intake: current Alcohol intake frequency: holidays/special occasions only Patient Tobacco Use Status: Current everyday Tobacco user Tobacco use type: Cigarette Cigarettes Per Day: 3 Smoked in Last 30 Days: No Use of substances other than those prescribed or required for medical reasons: No Advance Directives: No Advance Directives Information Provided: No Do you have a plan to hurt others: No Plan Patient : No service: No Physical Exam 2 Vital Signs: Vital Signs: Last Vital Signs Temp 98.7 F 06/03/24 21:41 Pulse 82 06/03/24 21:41 Resp 16 06/03/24 21:41 BP 130/86 06/03/24 21:41 Pulse Ox 98 06/03/24 21:41 O2 Del Method Room Air 06/03/24 21:41 BMI result Body Mass Index 23.2 Const: General: No confusion Nutritional Appearance: well nourished O rientation/consciousness: No confusion HEENT: Head: Yes normocephalic and Yes atraumatic Eyes: Eyelids: Yes eyelids normal Conjunctivae: conjunctivae normal S clerae: sclerae normal Corneas: corneas normal Pupils: Equal, round and reactive pupils present EOM: EOMs intact bilaterally Neck: Neck: Yes full ROM Resp: Effort & Inspection: normal respiratory effort, able to speak in complete sentences, no audible wheezes and not labored Auscultation: clear to auscultation bilaterally Cardio: Rate: regular rate Rhythm: regular rhythm GI: Inspection: No distended Palpation (GI): Soft to palpation, not firm, nontender, no guarding and not rigid Skin: General skin exam: elasticity normal Neuro: General: No confusion Cranial nerves: Yes CN's II-XII intact bilaterally, Yes Equal, round and reactive pupils present and Yes Bilaterally intact EOM present Cognition (Neuro): normal cognition Speech: No Abnormal speech present Motor exam (neuro): 5/5 motor strength present throughout, Pronator motor function not present, no tremor noted, no asterixis, Motor fasciculations not present, Normal motor muscle tone present throughout and Motor abnormalities not present Sensory Exam: No Sensory deficit (Neuro) Medications Administered Discontinued Medications Generic Name Dose Route Start Last Admin Trade Name Freq PRN Reason Stop Dose Admin Potassium Chloride 40 meq 06/03/24 20:37 06/03/24 22:45 Potassium Chloride Er 20 Meq Tab.Er.Prt PO 06/03/24 20:38 40 meq ONCE ONE Administration Medical Decision Making Medical Decision Making [facility] Narrative: 59 old female presents for evaluation of numbness and tingling with an associated headache for the last 2 days. She has no focal neurologic deficits, I have a low suspicion for CVA at this time. She has an NIH stroke score of 0. A CT scan of the brain was ordered, but given there are no neurologic deficits, angiography of the head and neck was not obtained. Plan for basic labs, EKG and further workup as indicated. Differential Diagnosis Differential Diagnoses: The differential diagnosis associated with the presentation includes Paresthesias Numbness and tingling Anxiety CVA TIA Intracranial hemorrhage Lab Data 06/03/24 20:12 06/03/24 20:12 Labs: Lab Results 06/03/24 06/03/24 Range/Units 19:51 20:12 WBC 7.5 (4.8-10.8) X10*3/uL RBC 3.95 L (4.20-5.50) X10*6/uL Hgb 12.5 (12.0-16.0) g/dl Hct 36.3 L (37.0-47.0) % MCV 91.9 (80.0-98.0) fL MCH 31.6 (27.0-33.0) pg MCHC 34.4 (31.0-35.0) g/dl RDW 12.3 (11.0-16.0) % Plt Count 196 D (160-400) X10*3/uL MPV 8.9 L (9.4-12.3) fL Immature Gran % (Auto) 0.1 (0.0-0.4) % Neut % (Auto) 42.1 L (45-73) % Lymph % (Auto) 45.1 H (20-40) % [place] % (Auto) 9.9 (2-11) % Eos % (Auto) 2.0 (0-4) % Baso % (Auto) 0.8 (0-2) % Lymph # (Auto) 3.4 (1.2-4.9) X10*3/uL [place] # (Auto) 0.7 (0.1-1.2) X10*3/uL Eos # (Auto) 0.2 (0.0-0.4) X10*3/uL Baso # (Auto) 0.1 (0.0-0.2) X10*3/uL Abs Immat Gran (auto) 0.01 (0.00-0.03) X10*3/uL Absolute Neuts (auto) 3.2 (2.0-8.3) x10*3/uL Absolute Nucleated RBC 0.000 (0.0-0.012) X10*3/uL Nucleated RBC % (auto) 0.0 (0.0-0.2) /100WBC PT 11.3 (10.9-12.4) SEC INR 1.0 (0.9-1.1) APTT 31.9 (26.0-36.8) SEC Sodium 140 (135-145) mmol/L Potassium 3.1 L D (3.3-5.1) mmol/L Chloride 109 H (96-108) mmol/L Carbon Dioxide 24 (22-29) mmol/L Anion Gap 10 L (12-20) BUN 11 (9-16) mg/dL Creatinine 0.53 (0.5-1.4) mg/dL Estim Creat Clear Calc 85.2 Estimated GFR > 60 POC Glucose 135 H (60-115) mg/dL Random Glucose 144 H (60-115) mg/dL Calcium 8.6 D (8.4-10.2) mg/dL Troponin I High Sens < 2.7 (<3.5-17.0) ng/L Triglycerides 84 (<150) mg/dL Cholesterol 175 (<200) mg/dL LDL Cholesterol, Calc 97 (<100) mg/dL HDL Cholesterol 62 (>40) mg/dL Discharge Plan Discharge Clinical Impression: Headache, Acute hypokalemia Patient Disposition: Home, Self-Care Instructions: Hypokalemia (ED), Acute Headache (ED) Additional Instructions: Your workup in the ER today was reassuring. This includes your blood work, CT scan and EKG. Your potassium was slightly low at 3.1. Abnormalities in your potassium can cause numbness, tingling and muscle cramps Follow-up with your primary doctor next week for repeat blood work Prescriptions: No Action cefuroxime axetil 500 mg tablet 500 mg PO BID 5 Days Qty: 10 0RF azithromycin 250 mg tablet 250 mg PO DAILY 5 Days Qty: 5 0RF prednisone 20 mg tablet 40 mg PO DAILY 4 Days Qty: 8 0RF benzonatate 100 mg capsule 100 mg PO BID PRN (Reason: cough) Qty: 10 0RF albuterol sulfate 90 mcg/actuation HFA aerosol inhaler 2 puff inhalation Q4-6H PRN (Reason: shortness of breath or wheezing) Qty: 6.7 0RF Print Language: Czech
[2024-06-03 20:29] LABS: Prothrombin Time 11.3 SEC (10.9-12.4)
[2024-06-03 20:32] LABS: Partial Thromboplastin Time 31.9 SEC (26.0-36.8)
[2024-06-03 20:33] LABS: Stroke Lab Use COMPLETE
[2024-06-03 20:35] LABS: Anion Gap 10 (12-20); Blood Urea Nitrogen 11 mg/dL (9-16); Calcium 8.6 mg/dL (8.4-10.2); Carbon Dioxide 24 mmol/L (22-29); Chloride 109 mmol/L (96-108); Cholesterol 175 mg/dL (<200); Creatinine Clr Calc Pharmacy 85.2; Estimated Glomerular Filt Rate > 60; Glucose Random 144 mg/dL (60-115); HDL Cholesterol 62 mg/dL (>40); LDL Cholesterol Calculated 97 mg/dL (<100); Potassium 3.1 mmol/L (3.3-5.1); Sodium 140 mmol/L (135-145); Triglycerides 84 mg/dL (<150)
[2024-06-03 20:43] LABS: Troponin-I High Sensitivity < 2.7 ng/L (<3.5-17.0)
[2024-06-03 21:41] VITALS: BP 130/86; PULSE 82; RESP 16; TEMP 37.1; O2SAT 98
[2024-06-03] MEDS: Potassium Chloride ER 20 MEQ TAB.ER.PRT 40 MEQ PO (22:45)
[2024-06-04 00:04] VITALS: BP 130/86; PULSE 82; RESP 16; TEMP 37.1; O2SAT 98
== END 2024-06-04 00:05 | disposition home or self-care (01) ==
PROVIDERS: Physician Assistant; Emergency Provider Internal Medicine
DX: R51.9 Headache, unspecified (principal); E87.6 Hypokalemia; M79.605 Pain in left leg; R20.0 Anesthesia of skin; F17.210 Nicotine dependence, cigarettes, uncomplicated; Z79.899 Other long term (current) drug therapy
CPT/HCPCS: 36415; 70450; 80048; 80061; 82947; 84484; 85025; 85610; 85730; 93005; 99285

== ENCOUNTER → 2024-06-03 19:53 | Outpatient (BNV) | payer MEDICAID, SELFPAY | PROVIDERS: Emergency Provider Internal Medicine; Visit Provider Internal Medicine Cardiovascular Disease | DX: R53.1 Weakness (principal); R51.9 Headache, unspecified | CPT/HCPCS: 93010 ==

== ENCOUNTER 2024-06-22 08:13 | Outpatient (REF) | payer MEDICAID, SELFPAY ==
[2024-06-22 12:17] LABS: Anion Gap 12 (12-20); Blood Urea Nitrogen 7 mg/dL (9-16); Calcium 9.1 mg/dL (8.4-10.2); Carbon Dioxide 25 mmol/L (22-29); Chloride 105 mmol/L (96-108); Estimated Glomerular Filt Rate > 60; Glucose Random 74 mg/dL (60-115); Potassium 3.6 mmol/L (3.3-5.1); Sodium 138 mmol/L (135-145)
[2024-06-25 07:29] LABS: TS Negative Control Passed; TS Panel A 4; TS Panel B 16; TS Positive Control Passed; TSpotTB Positive (Negative)
== END 2024-06-22 08:14 | disposition home or self-care (01) ==
LOC: HO.HHCL 08:13
PROVIDERS: Family Medicine; Visit Provider Family Medicine
DX: Z11.1 Encounter for screening for respiratory tuberculosis (principal); F41.1 Generalized anxiety disorder; F41.0 Panic disorder [episodic paroxysmal anxiety]; E87.6 Hypokalemia
CPT/HCPCS: 36415; 80048; 86481

== ENCOUNTER 2024-06-22 13:35 | Outpatient (REF) | payer MEDICAID, SELFPAY | END 2024-06-22 13:36 | disposition home or self-care (01) | LOC: HO.HHCL 13:35 | PROVIDERS: Visit Provider Family Medicine | DX: Z13.89 Encounter for screening for other disorder (principal) ==

== ENCOUNTER 2024-07-16 12:04 | Outpatient (REF) | payer MEDICAID, SELFPAY ==
--- NOTE | ~2024-07-16 | XR_ITS ---
EXAMINATION: XR CHEST CLINICAL INFORMATION: Positive Tspot COMPARISON: CT chest from 09/25/2022 TECHNIQUE: 2 views of the chest were obtained. FINDINGS: Heart is normal in size. No acute focal airspace opacities or pleural effusions. There are calcified granulomas in the right upper lobe and calcified lymph nodes in the right hilum consistent with old granulomatous disease XR/XR chest 2V IMPRESSION: No acute process. Evidence of old granulomatous disease. Electronically signed by: Madhu Andino MD 07/18/2024 10:48 AM [facility]
--- OUTSIDE RECORDS SUMMARY | 2024-07-16 12:15 | XMS_ITS | Continuity of Care Document ---
Author Organization [facility] Address [address] [place] [address] Phone Care Team Providers Care Sagger Preparer Name Role Phone Ana Rosa OTISCarly Victorina Unavailable Unavailabl e Procedures Procedure Date New Dental Patient Limit Oral Exam Radiograph Frst Film Radiograph Frst Film Advance Directives Directive Yes / No Effective Date File Name No Information Encounters Encounter Description Practice Location Reason(s) For Visit Diagnoses Date Provider Providers Copied on Encounter [facility], [address], [place], [id number] , tel:+ [phone] [facility] AsthmaTobacco Abuse, History ofHeadacheRespiratory abnormality, unspecifiedSyncope and collapseOther psychological or physical stress, not elsewhere classifiedDental examination 1 Ana Rosa [address]. [address] [place], [address]. tel:+ [phone] Family History Family Member Type Diagnosis Age At Onset No Information Payers Payer name Insurance type Covered green party ID Authoriza tion(s) Medicaid Dental [id number] Social History Type Description Quantity Date Captured Comments Sex Female Smoking Status No Information Chief Complaint And Reason For Visit No Information Reason For Referral Reason For Referral No Information History Of Present Illness Encounter Date Complaint History Of Prese nt Illness No Information Functional Status Date Functional Assessmen t No Information Instructions Date Instruction Additional Infor mation No Information Assessments Type Assessment Date No Information Patient Care Teams Name Effective Dates (start - stop) Status Members No Information
== END 2024-07-16 12:05 | disposition home or self-care (01) ==
LOC: HO.HHCX 12:04
PROVIDERS: Visit Provider Family Medicine
DX: Z11.1 Encounter for screening for respiratory tuberculosis (principal)
CPT/HCPCS: 71046